=== PATIENT | male | born 1990 | race Caucasian/White ===

== ENCOUNTER 2025-02-20 07:25 | Emergency (ER) | payer OTHER ==
[~2025-02-20] VITALS: Ht 177.8 cm; Wt 86.2 kg
[2025-02-20] MEDS ORDERED: POLYTRIM EYE DR10 M1 LEFTEYE (08:28)
[2025-02-20] MEDS ORDERED: Polymyxin B /Trimethoprim Opth Soln 10 ML LEFTEYE ONE (08:30)
== END 2025-02-20 08:41 | disposition other institution (70) ==
LOC: ER 07:25
DX: H10.89 Other conjunctivitis (principal)
CPT/HCPCS: 99282; A9270